=== PATIENT | male | born 1995 | race Caucasian/White ===

== ENCOUNTER 2018-08-28 14:12 | Emergency (ER) | payer OTHER ==
[2018-08-28] MEDS ORDERED: DIPH/PERTUSS(ACELL)/TETANUS VAC/PF 0.5 ML SYR (>=10YO) IM ONE (14:40)
[2018-08-28] MEDS ORDERED: LIDOCAINE 1% INJ (10 MG/ML) 10 ML MDV INJ ONE (14:41)
--- NOTE | 2018-08-28 14:45 | ER Document Report ---
ED General - General Chief Complaint: Finger Injury Stated Complaint: FINGER LACERATION Time Seen by Provider: 08/28/18 14:36 Mode of Arrival: Ambulatory Information source: Patient TRAVEL OUTSIDE OF THE [place] IN LAST 30 DAYS: No - HPI Patient complains to provider of: Left middle finger tip amputation Onset: Just prior to arrival Onset/Duration: Sudden Severity: Mild Associated symptoms: None Exacerbated by: Denies Relieved by: Denies Similar symptoms previously: No Recently seen / treated by doctor: No Notes: 22-year-old male coming in today with left middle finger injury. Apparently it was crushed between pieces of sheet metal. The tip of the left middle finger has been amputated. No active bleeding. Patient has never had a tetanus booster to his knowledge. Wound is dirty and will need to be cleaned out - Related Data Allergies/Adverse Reactions: No Known Allergies Allergy (Verified 08/28/18 14:14) Past Medical History - General Information source: Patient - Social History Smoking Status: Never Smoker Family History: Reviewed & Not Pertinent Review of Systems - Review of Systems Notes: Constitutional: No fevers. No chills. EENT: No eye redness. No eye pain. No ear pain. No sore throat. Cardiovascular: No chest pain. No palpitations. Respiratory: No cough. No shortness of breath. No respiratory distress. Gastrointestinal: No abdominal pain. No nausea, vomiting, or diarrhea. Genitourinary: Atraumatic. No lesions. No pain. No discharge. Musculoskeletal: Atraumatic. No swelling. Partial fingertip amputation left middle finger Skin: No rash or lesions. Lymphatic: No swollen lymph nodes. Neurologic: No headache. No syncope. Psychiatric: No suicidal or homicidal ideation. Physical Exam - Vital signs Vitals: Temp Pulse Resp BP Pulse Ox 97.9 F 105 H 16 155/106 H 98 08/28/18 14:23 08/28/18 14:23 08/28/18 14:23 08/28/18 14:23 08/28/18 14:23 - Notes Notes: General: Well-developed, well-nourished. In no acute distress. Non-toxic appearing. Cardiac: Well-perfused. Regular rate and rhythm. No murmurs, rubs, or gallops. Pulmonary: No respiratory distress. No cyanosis. Bilateral lung fiels are clear to auscultation. Abdominal: Non-distended. Non-rigid. Bowels sounds are present in all four quadrants. No guarding or rebound. HEENT: Head is atraumatic. Conjunctivae not reddened. No tearing. PERRL. EOMI. Orbits atraumatic. No periorbital swelling or erythema. Oropharynx is without erythema, swelling, or exudates. Neck: Supple. No adenopathy. No meningismus. Dermatologic: Warm with good turgor. No rash. Atraumatic. Chest: Atraumatic. No chest wall tenderness to palpation. Musculoskeletal: Moves all extremities well. No range of motion deficits. no muscular or joint tenderness. No paraspinal muscle tenderness. no midline spinal tenderness or step-off. Left middle finger has a tip amputation just at the level above the fingernail. There is no nailbed involvement. There is no activ e bleeding. There is some dirt and debris in the wound. Otherwise good range of motion and neurovascular status intact Genitourinary: Examination deferred Neurologic: No gross neurologic deficits. Psychiatric: Normal mood. Course - Re-evaluation Re-evalutation: 08/28/18 14:45 We will go ahead and do a digital block on the finger. Has there is no tip to so back on. Irrigate copiously start on antibiotics and follow him up with orthopedics 08/28/18 16:00 There is a tuft fracture present as expected. Digital block was done for anesthesia. The wound is being scrubbed vigorously and will be dressed with a coagulant dressing. Patient is here doing a job from [facility]. It will be a Workmen's Comp. injury. I informed him that it is critical that he file the necessary paperwork and also to follow-up as soon as possible with his Workmen's Comp. provider and be referred to orthopedics if necessary. He will get antibiotics orally here we will prescribe him antibiotics and pain medicine to go home with. I will give him the name of Orth O on-call for here fully understanding that this is probably not going to happen locally but closer to home. He is aware that this is at risk for getting infected and prompt definitive follow-up is critical. - Vital Signs Vital signs: Temp Pulse Resp BP Pulse Ox 97.9 F 105 H 16 155/106 H 98 08/28/18 14:23 08/28/18 14:23 08/28/18 14:23 08/28/18 14:23 08/28/18 14:23 Procedures - Laceration/Wound Repair Left middle finger tip amputation Time completed: 16:02 Wound length (cm): 3 Wound's Depth, Shape: Flap Anesthetic type: 1% Lidocaine Volume Anesthetic (mLs): 10 Wound explored: Contaminated Irrigated w/ Saline (mLs): 100 - Wound was scrubbed vigorously with Hibiclens Wound Debrided: Minimal Post-procedure NV exam normal: Yes Complications: No Notes: 08/28/18 16:04 The skin of the tip of the left middle finger was lost due to injury. The tip is exposed. As described, it was scrubbed vigorously with Hibiclens and saline. A dressing to promote coagulation was placed over the open wound. Subsequently the wound was dressed with a bulky firm circumferential dressing. Discharge - Discharge Clinical Impression: Traumatic amputation of fingertip Qualifiers: Encounter type: initial encounter Qualified Code(s): S68.119A - Complete traumatic metacarpophalangeal amputation of unspecified finger, initial encounter Open fracture of finger of left hand Qualifiers: Encounter type: initial encounter Finger: middle finger Phalanx: distal Fracture alignment: nondisplaced Qualified Code(s): S62.663B - Nondisplaced fracture of distal phalanx of left middle finger, initial encounter for open fracture Condition: Good Disposition: HOME, SELF-CARE Instructions: Dressing Instructions for Open Wounds ([facility]), Open Finger Tuft Fracture ([facility]) Additional Instructions: Your finger is at high risk for getting infected. The bone at the end of your finger has been fractured and can also get infected. It is critical that you have prompt follow-up with your Workmen's Comp. doctor in the next day so that further referrals to orthopedics may be made if necessary. You have received antibiotics by mouth in the hospital and we will also discharge to home with antibiotics that he will take 4 times a day for the next 10 days. You will receive a prescription for pain medication that you may use as needed for moderate to severe pain. I recommend Tylenol or ibuprofen as a primary pain reliever and only use the prescription strength medication if necessary. I will give you the name of our local orthopedic surgeon however I do know that [place] and will likely find a specialist near to where you live. In any event, I reiterate the importance of prompt follow-up so that you do not develop an infection in this finger and that proper healing will take place Prescriptions: Hydrocodone/Acetaminophen [[place] 5-325 mg Tablet] 1 tab PO Q6HP PRN #12 tablet PRN Reason: Cephalexin Monohydrate [Keflex 500 mg Capsule] 500 mg PO Q6H 10 Days #40 capsule Referrals: MORENO VOSS MD [ACTIVE STAFF] - Follow up tomorrow
[2018-08-28] MEDS ORDERED: CEPHALEXIN 500 MG CAPSULE PO ONE (15:21)
--- NOTE | 2018-08-28 15:25 | RADIOLOGY REPORT (SQ) ---
EXAM DESCRIPTION: HAND LEFT 3 VIEWS COMPLETED DATE/TIME: 08/28/2018 3:16 pm REASON FOR STUDY: finger tip amputation, r/o bony injury middle fing COMPARISON: None. EXAM PARAMETERS: NUMBER OF VIEWS: Three views. TECHNIQUE: AP, lateral and oblique radiographic images acquired of the left hand. LIMITATIONS: None. FINDINGS: MINERALIZATION: Normal. BONES: Amputation of the tip of the 3rd digit with avulsion of a small amount of bone from the termin al tuft. JOINTS: No effusions. SOFT TISSUES: No soft tissue swelling. No foreign body. OTHER: No other significant finding. IMPRESSION: There is been avulsion of a small amount of bone from the terminal tuft of the 3rd dista l phalanx. Soft tissue amputation of the tip of the finger. TECHNICAL DOCUMENTATION: JOB ID: [id number] [employer]- All Rights Reserved Reading location - IP/workstation name: [email or web address]
[2018-08-28 16:24] VITALS: BP 151/75
== END 2018-08-28 16:35 | disposition home or self-care (01) ==
LOC: ER 14:12
PROC: 0HQGXZZ Repair Left Hand Skin, External Approach (ICD-10-PCS; principal; 2018-08-28)
DX: S68.123A Partial traumatic metacarpophalangeal amputation of left middle finger, initial encounter (principal); X58.XXXA Exposure to other specified factors, initial encounter
CPT/HCPCS: 90471; 90715; 99283